=== PATIENT | female | born 1985 | race Two or more races ===

== ENCOUNTER → 2017-03-13 | Outpatient (CLI) | payer OTHER ==
--- NOTE | 2017-03-13 15:48 | KCIC ---
Ultrasound Pelvis Indication:Reason For Study Reason: PELVIC PAIN / Spl. Instructions: / History: Technique: Multiple real-time grayscale images were obtained over the pelvis . Color Doppler imaging was utilized. Findings: The uterus is normal in size measuring 8.1 x 3.3 x 3.8 cm. The endometrium is also within normal limits measuring 3 mm in thickness. The right ovary measures 2.5 x 1.9 x 2.9cm. No abnormal right ovarian lesions are identified. Normal blood flow is identified. The left ovary measures 3.4 x 2.1 x 2.6cm. No abnormal left ovarian lesions are identified. Normal blood flow is identified. No pelvic free fluid is identified. Impression: Normal pelvic sonogram Electronically signed by: Alfredito Alatorre (Mar 13, 2017 15:46:11)
== END | disposition home or self-care (01) ==
LOC: KCIC US 14:59
PROVIDERS: ATTEND Family Medicine
DX: R10.2 Pelvic and perineal pain (principal)
CPT/HCPCS: 76856